=== PATIENT | male | born 1980 | race Caucasian/White ===

== ENCOUNTER 2020-05-17 13:07 | Emergency (ER) | payer OTHER ==
[~2020-05-17] VITALS: Ht 172.7 cm; Wt 45.4 kg
[2020-05-17] MEDS ORDERED: Prednisone20 MG PO (14:19)
== END 2020-05-17 15:35 | disposition home or self-care (01) ==
LOC: ER 13:07
DX: L23.7 Allergic contact dermatitis due to plants, except food (principal); Z59.0 Homelessness; Z88.0 Allergy status to penicillin; F17.210 Nicotine dependence, cigarettes, uncomplicated
CPT/HCPCS: 94640; 96374; 96375; 99282-25; J2930; J7030